=== PATIENT | male | born 1975 | race Caucasian/White ===

== ENCOUNTER → 2017-06-10 08:13 | Outpatient (CLI) | payer BC, SELFPAY ==
--- NOTE | 2017-06-10 08:15 | RAD_ITS ---
STUDY: X-RAY - LEFT WRIST REASON FOR EXAM: Male, 42 years old. Pain TECHNIQUE: 3 view(s) of the wrist were obtained. COMPARISON: None. FINDINGS: Normal visualized distal radius and ulna. Normal radiocarpal articulation. Normal distal radioulnar articulation. Normal carpal bones. Normal carpal articulations. Normal carpometacarpal articulation of the thumb. Normal second through fifth carpometacarpal articulations. Normal visualized metacarpal bones. The soft tissue structures are unremarkable. RAD/Wrist min 3 Views IMPRESSION: Normal x-ray examination of the wrist. Electronically Signed: Maverick Gonzalez DO at 23:58 EDT , Service support ,
== END ==
PROVIDERS: Family Provider Student in an Organized Health Care Education/Training Program; PCP Student in an Organized Health Care Education/Training Program; Visit Provider Physician Assistant
DX: M25.532 Pain in left wrist (principal)
CPT/HCPCS: 73110

== ENCOUNTER → 2017-09-10 07:55 | Outpatient (CLI) | payer BC, SELFPAY ==
--- NOTE | 2017-09-10 07:58 | CT_ITS ---
STUDY: CT MAXILLOFACIAL SINUSES REASON FOR EXAM: Male, 42 years old. Polyposis. Chronic sinusitis. RADIATION DOSAGE (If Supplied By Facility): CTDIvol = ( 33.06 ) mGy, DLP = ( 777.87 ) mGycm TECHNIQUE: The patient was scanned in a multi detector CT scanner. High resolution axial imaging was performed without the administration of intravenous contrast material. Sagittal and coronal images were reconstructed. Individualized dose optimization techniques were used for this CT. COMPARISON: None. FINDINGS: FRONTAL SINUSES: Opacification of the frontal sinus. ETHMOIDAL SINUSES: Opacification of the ethmoid sinuses. MAXILLARY SINUSES: Opacification of the maxillary sinuses. Mucosal thickening of the sphenoid sinus. SPHENOIDAL SINUSES: Mucosal thickening of the sphenoid sinus. There is obliteration of the ostiomeatal coccyx bilaterally due to soft tissue proliferation. There is partial obliteration of the nasal fossa bilaterally most likely secondary to polyposis. This extends into the nasopharynx posteriorly. There is nasal septal deviation towards the right sided midline. The visualized osseous structures are normal. The visualized bilateral orbital contents are normal. CT/Sinus/Facial Bone IMPRESSION: Pansinusitis. Findings suggestive of a diffuse nasal polyposis. Electronically Signed: David Hopkins MD at 14:33 EDT Tel [phone], Service support ,
== END ==
PROVIDERS: Family Provider Student in an Organized Health Care Education/Training Program; PCP Student in an Organized Health Care Education/Training Program; Visit Provider Otolaryngology
DX: J33.1 Polypoid sinus degeneration (principal)
CPT/HCPCS: 70486

== ENCOUNTER 2017-09-15 17:47 | Observation (INO) | payer BC, SELFPAY ==
[2017-09-15 17:48] VITALS: BP 151/92; PULSE 61; RESP 16; TEMP 36.8; O2SAT 99; BMI 26.9
--- NOTE | 2017-09-15 17:53 | EKG12_ITS ---
Test Reason : CP Blood Pressure : / mmHG Vent. Rate : 046 BPM Atrial Rate : 046 BPM P-R Int : 192 ms QRS Dur : 094 ms QT Int : 414 ms P-R-T Axes : 029 -02 016 degrees QTc Int : 362 ms Sinus bradycardia Otherwise normal ECG Confirmed by MORTEZA RODRIGUEZ, AVINASH ([id number]), image editor SERG COOK ([id number]) on 09/17/2017 1:55:23 PM Referred By: Thang Hooper Confirmed By:AVINASH PRO MD
--- NOTE | 2017-09-15 17:59 | RAD_ITS ---
STUDY: X-RAY CHEST REASON FOR EXAM: Male, 42 years old. Chest pain TECHNIQUE: Single AP portable view of the chest. COMPARISON: None. FINDINGS: The lungs are clear and expanded. There is no demonstrated pleural abnormality. Normal size heart. Normal mediastinum and marty. Normal visualized pulmonary arteries. Normal visualized aortic arch and descending thoracic aorta. Normal visualized thoracic spine. Normal visualized ribs, clavicles, and shoulders. There is no demonstrated abnormality of the visualized soft tissue structures of the upper abdomen. RAD/Chest 1 View (Portable) IMPRESSION: Normal x-ray examination of the chest. Electronically Signed: Rosales Zuniga DO at 18:41 EDT Tel , Service support ,
[2017-09-15 18:13] LABS: Absolute Lymphocyte Count 1.97 X10^3/ul (0.83-4.51); Absolute Neutrophil Count 3.9 X10^3/uL (2.0-7.7); Basophil# 0.04 X10^3/uL; Basophil% 0.6 % (0-1); Eosinophil# 0.43 X10^3/uL; Eosinophils% 6.3 % (0-5); Hematocrit 44.2 % (40-54); Hemoglobin 15.2 g/dl (13.0-16.5); Lymphocyte # 1.97 X10^3/ul (4.0); Mean Corp Hgb Conc 34.4 g/gl (32-36); Mean Corpuscular Hgb 30.4 pg (27.0-32.0); Mean Corpuscular Volume 88.4 fL (80-94); Mean Platelet Vol. 11.6 fl (6.2-12.0); Monocyte# 0.47 X10^3/uL; Monocyte% 6.9 % (0-10); Neutrophil # 3.89 X10^3/uL (2.7-7.7); Neutrophil % 57.2 % (47-70); Platelet Count 160 K/mm3 (150-450); RBC Distribution Width CV 12.4 % (11.6-14.6); RBC Distribution Width SD 39.9 fl (35.1-43.9); White Blood Count 6.8 K/mm3 (4.4-11.0)
[2017-09-15 18:21] LABS: POSITIVE COUNT NO; POSITIVE DIFFERENTIAL NO; POSITIVE MORPHOLOGY NO
[2017-09-15 18:41] LABS: Anion Gap 7 (5-15); BUN 26 mg/dL (7-18); BUN/Creat Ratio 22.8 RATIO (10-20); Calcium,Total 8.9 mg/dL (8.5-10.1); Chloride 107 mmol/L (98-107); Creatinine, Serum 1.14 mg/dL (0.70-1.30); EST Glomerular Filtration Rate 76 mL/min (>60); Est Glom Filt Rate - Afr Amer 91 mL/min (>60); Estimated Creatinine Clearance 97.34 ml/min; Glucose 96 mg/dL (74-106); Potassium 4.3 mmol/L (3.5-5.1); Sodium Level 143 mmol/L (136-145)
--- NOTE | 2017-09-15 19:33 | CT_ITS ---
STUDY: CTA CHEST REASON FOR EXAM: Male, 42 years old. Palpitations and chest pain RADIATION DOSAGE (If Supplied By Facility): CTDIvol = ( 17.56 ) mGy, DLP = ( 703.92 ) mGycm TECHNIQUE: The examination was performed with the intravenous administration of 100 ml of Isovue 370 contrast material. Post-processing of the angiographic images was performed, with multiplanar reformation and 3D reconstruction. Individualized dose optimization techniques were used for this CT. COMPARISON: None. FINDINGS: Normal enhancement of the main pulmonary artery and right and left pulmonary arteries. Normal enhancement of the bilateral peripheral pulmonary arteries. There is no demonstrated pulmonary embolism. Normal thoracic aorta and visualized great vessels. There is no demonstrated aortic dissection. Normal heart and pericardium. Normal mediastinum. Normal hilar regions. Normal visualized trachea and bronchi. The lungs are well expanded. Normal pulmonary parenchyma. Normal pleura. Normal chest wall structures. Normal osseous structures. Normal visualized upper abdomen. CT/CTA Chest W/WO Contrast IMPRESSION: Normal CTA chest examination, without a demonstrated pulmonary embolism or arterial dissection. Electronically Signed: Rosales Zuniga DO at 20:19 EDT Tel , Service support ,
[2017-09-15 19:37] VITALS: BP 136/101; PULSE 58; RESP 16; O2SAT 98; O2SAT 99
--- NOTE | 2017-09-15 19:38 | ED.VISSUMM ---
- ER Visit Summary Date of Service: 09/15/17 Chief Complaint: Pain History of Present Illness: The patient is a 42 M with left-sided chest pain radiating to his left arm. This is associated with paresthesias into his arms. He has been having sweats and dizziness with this. His blood pressure has been as high as 222/111. He had some symptoms last week where he had chest pain at work and felt lightheaded. He has a history of high cholesterol, elevated blood pressures, and a family history of coronary disease. No history of PE or aortic disease. No fevers or infectious symptoms. No cough or shortness of breath. Physical Examination: Blood pressure 151/92. Heart rate 61. Afebrile. Patient appears uncomfortable but not toxic or in distress. Skin appears normal. Heart bradycardic but regular. Lungs clear. Abdomen soft and nontender. Calves soft and supple. Pulses strong and equal. Test Results: EKG shows bradycardia at a rate of 46. No sign of acute ischemia or infarction pattern. CBC, BMP, troponin normal. Emergency Department Course and Treatment: Patient had an EKG and lab work done in triage per nursing protocol. When I saw him, he continued to have chest pain. He was placed on a monitor. Will check a CTA for dissection given his pain, numbness and paresthesias, and elevated blood pressure. I have low suspicion for PE or infectious etiologies. Patient is bradycardic here. He has no history of bradycardia. His heart rate is normal in the 70s. CTA unremarkable. Patient continued to have a heart rate in the 50s. He is overall low risk, but his persistent symptoms, bradycardia, and strong family history are concerning. I spoke with the hospitalist who will admit for further care. Treatment Plan: As above Disposition: Admission Impression: 1. Chest pain 2. Bradycardia This note was generated with [employer] dictation software. It may contain incorrect words, spelling, and punctuation that were not noted in review of the chart prior to signing ED Disposition - Plan for ED Patient: Chief Complaint: Chest Pain Referrals: Aleksey Leung DO [Primary Care Provider] -
[2017-09-15 20:00] VITALS: BP 139/95; PULSE 57; RESP 14; O2SAT 99
[2017-09-15 20:06] VITALS: BMI 26.9
[2017-09-15 20:39] LABS: Thyroid Stim Hormone (TSH) 2.65 uIU/mL (0.358-3.74)
--- NOTE | 2017-09-15 21:34 | PCM.HP.STD ---
Problem List (1) Hyperlipidemia Status: Chronic (2) GERD (gastroesophageal reflux disease) Status: Chronic (3) Chest pain Status: Acute History of Present Illness Date of Admission: 09/15/17 Chief Complaint: Chest pain The patient is a 42 year old M with past medical history as mentioned above presented to the medicine because of chest pain. The pain is retrosternal, dull aching pain, not radiating, intermittent, 6 out of 10 in severity, associated with mild shortness of breath as well as numbness and tingling of both hands and legs and without aggravating or relieving factors. He has been having episodes of similar chest pain over the last week but has been resolving spontaneously. He denied dizziness, lightheadedness, syncope or presyncope. He reported headache. Denied focal arm or leg weakness. He mentioned that his blood pressure has been high up to 200 systolic. In the emergency department, his blood pressure was slightly elevated and then improved. He was bradycardic, heart rate has been in the 50s. He was afebrile. His routine blood work was unremarkable. Troponin was negative. TSH was normal. EKG revealed sinus bradycardia, heart rate of 46 bpm without evidence of heart block or cardiac arrhythmias, no acute ischemic changes. Chest x-ray showed no acute findings. CTA chest showed no PE or dissection. He is being admitted for chest pain and bradycardia for evaluation. Past Medical History Past Medical History (Chronic Problems): Chronic Problems (Last Updated 06/10/17 @ 08:06 by Madelaine Tobias) Hyperlipidemia (Chronic) GERD (gastroesophageal reflux disease) (Chronic) Medical History: Medical History (Last Updated 06/10/17 @ 08:06 by Madelaine Tobias) Back pain M54.9 Fatigue R53.83 GI bleed K92.2 Shoulder pain M25.519 Allergies metaxalone [From Skelaxin] Adverse Reaction (Verified 09/15/17 17:52) Hives Home Medications: Ambulatory Orders Medication Instructions Recorded Atorvastatin Calcium [Lipitor] 10 mg PO QHS 08/11/14 naproxen 250 mg tablet 250 mg PO BID 06/10/17 Cholecalciferol (Vitamin D3) 50,000 unit PO PARSONS 09/15/17 [Vitamin D3] Surgical History: no surgical history Lives: Spouse/ Significant Other Smoking Status: Former smoker Tobacco Use: Cigarettes Alcohol: None Drugs: None - *Family History Paternal Family History: Family History (Last Updated 06/10/17 @ 08:07 by Madelaine Tobias) Other Hypertension History Items: - - diabetes Maternal Family History: Family History (Last Updated 06/10/17 @ 08:07 by Madelaine Tobias) Other Hypertension History Items: No pertinent history Review of Systems Constitutional: Denies: Anorexia, Chills, Fever, Weakness Eyes: Denies: Blurred vision, Double vision, Drainage, Redness HEENT: Reports: Head Aches. Denies: Difficulty Hearing, Dysphasia, Ear Pain, Eye Pain, Nasal Congestion, Sore Throat Cardiovascular: Reports: Chest Pain. Denies: Edema, Heaviness, Light Headedness, Orthopnea, Paroxysmal Noc. Dyspnea, Syncope Respiratory: Reports: Shortness of Breath. Denies: Cough, Hemoptysis, Pleuritic Pain, Sputum production, Wheezing Gastrointestinal: Denies: Abdominal Pain, Constipation, Diarrhea, Nausea, Vomiting Genitourinary: Denies: Dysuria, Frequency, Hematuria Musculoskeletal: Denies: Arm Pain, Back Pain, Foot Pain Skin: Denies: Dryness, Rash Neurological: Denies: Balance problems, Double vision, Change in Speech, Slurred speech, Confusion, Focal weakness, Headaches, Incoordination Psychiatric: Denies: Anxiety, Depression Endocrine: Denies: Change in Body Habitus, Polydipsia VTE Information - Inpt Only VTE Present on Admission: No VTE Mechan Device Prophylaxis: None VTE Pharm Prophylaxis ordered?: No - Physical Exam General: Alert, Oriented x3, Cooperative, No apparent distress HEENT: Atraumatic, PERRLA, EOMI, Normocephalic Oral: Moist Mucosa, No Gingival or Mucosal Lesions/ Ulcerations Neck: Supple, No JVD, Negative Carotid Bruits, Trachea Midline, Thyroid Normal Size and Texture Lungs: Clear to auscultation, Normal air movement, No rhonchi, No wheeze, No rales Cardiovascular: Regular rate, Regular Rhythm, Normal S1, Normal S2, PMI Normal Abdomen: Bowel Sounds Present, Soft, Non Tender, Non-Distended, No Hepato-splenomegaly Extremities: No clubbing, No cyanosis, No edema Skin: No rashes, No breakdown Lymphatic: No Cervical, Supraclavicular, or Inguinal Adenopathy Neurological: Cranial nerves II-XII grossly intact, Motor Exam 5/5 strength throughout Psych/Mental Status: Normal Affect, Appropriate, Alert and oriented to time, place, person, mood and affect Vital Signs Temp Pulse Resp BP Pulse Ox 98.2 F 57 L 14 139/95 H 99 09/15/17 17:48 09/15/17 20:00 09/15/17 20:00 09/15/17 20:00 09/15/17 20:00 Oxygen Flow Rate (L/min) 2 Oxygen Delivery Method Nasal Cannula Weight: 203 lb 14.841 oz Body Mass Index (BMI) 26.9 Laboratory Tests Past 24 Hrs 09/15/17 09/15/17 09/15/17 18:00 18:00 18:00 WBC 6.8 RBC 5.00 Hgb 15.2 Hct 44.2 MCV 88.4 MCH 30.4 MCHC 34.4 RDW 12.4 RDW Differential 39.9 Plt Count 160 MPV 11.6 Immature Gran % (Auto) 0.000 Neut % (Auto) 57.2 Lymph % (Auto) 29.0 Tripp % (Auto) 6.9 Eos % (Auto) 6.3 H Baso % (Auto) 0.6 Absolute Neuts (auto) 3.9 Absolute Lymphs (auto) 1.97 Total Counted Not Reportable Sodium 143 Potassium 4.3 Chloride 107 Carbon Dioxide 29.0 Anion Gap 7 BUN 26 H Creatinine 1.14 Estim Creat Clear Calc 97.34 Est GFR (MDRD) Af Amer 91 Est GFR (MDRD) Non-Af 76 BUN/Creatinine Ratio 22.8 H Glucose 96 Calcium 8.9 Troponin I < 0.015 TSH 2.65 Clinical Impression(s) from Imaging Studies Chest X-Ray 09/15/17 17:59 IMPRESSION: Normal x-ray examination of the chest. Electronically Signed: Rosales Zuniga DO at 18:41 EDT Tel , Service support , Chest CTA 09/15/17 19:33 IMPRESSION: Normal CTA chest examination, without a demonstrated pulmonary embolism or arterial dissection. Electronically Signed: Rosales Zuniga DO at 20:19 EDT Tel , Service support , Assessment/Plan All Active Problems (Last Updated 06/10/17 @ 08:06 by Madelaine Tobias) Chest pain (Acute) This is a 42 years old male patient presented to the emergency room because of atypical chest pain, found to have bradycardia and he is being admitted for evaluation #1 atypical chest pain: Risk factors are only hyperlipidemia. No family history of premature CAD. His EKG revealed sinus bradycardia, no acute ischemic changes. Troponin was negative. CTA chest showed no PE or dissection. Chest x-ray showed no acute findings. He had stress test 2 years ago back in October, that was normal. Plan: Admit to PCU for observation, cardiac monitoring, serial cardiac enzymes, IV fluids, sublingual nitro as needed for pain, nuclear stress test tomorrow morning if cardiac enzymes are negative. #2 elevated blood pressure/bradycardia: According to patient, sometimes his blood pressure goes up to 200 systolic. Upon arrival to ER, blood pressure was 151/92. At this time, blood pressure improved is down to 136/95. EKG revealed sinus bradycardia, heart rate of 46. He mentioned that he do a lot of exercise and goes to the gym. Also, his girlfriend mentioned that he takes large amounts of some type of supplement that contains large concentration of caffeine. This could be easily for high blood pressure which might lead to bradycardia. Plan as above. #3 hyperlipidemia: Continue statins. #4 DVT prophylaxis: Low risk patient, no prophylaxis indicated. This note was generated with [employer] software. It may contain incorrect words, spelling, and punctuation that were not noted in checking the note before signing. Code Visit OBSV E&M: 21227 Initial observation care L3
--- NOTE | 2017-09-15 21:36 | NURSING ---
Called [facility] CONFERENCE ASSISTANT at this time to inform PCU ready for admission
--- NOTE | 2017-09-15 21:38 | HP.PCM_ITS ---
Problem List (1) Hyperlipidemia Status: Chronic (2) GERD (gastroesophageal reflux disease) Status: Chronic (3) Chest pain Status: Acute History of Present Illness Date of Admission: 09/15/17 Chief Complaint: Chest pain The patient is a 42 year old M with past medical history as mentioned above presented to the medicine because of chest pain. The pain is retrosternal, dull aching pain, not radiating, intermittent, 6 out of 10 in severity, associated with mild shortness of breath as well as numbness and tingling of both hands and legs and without aggravating or relieving factors. He has been having episodes of similar chest pain over the last week but has been resolving spontaneously. He denied dizziness, lightheadedness, syncope or presyncope. He reported headache. Denied focal arm or leg weakness. He mentioned that his blood pressure has been high up to 200 systolic. In the emergency department, his blood pressure was slightly elevated and then improved. He was bradycardic , heart rate has been in the 50s. He was afebrile. His routine blood work was unremarkable. Troponin was negative. TSH was normal. EKG revealed sinus bradycardia, heart rate of 46 bpm without evidence of heart block or cardiac arrhythmias, no acute ischemic changes. Chest x-ray showed no acute findings. CTA chest showed no PE or dissection. He is being admitted for chest pain and bradycardia for evaluation. Past Medical History Past Medical History (Chronic Problems): Chronic Problems (Last Updated 06/10/17 @ 08:06 by Madelaine Tobias) Hyperlipidemia (Chronic) GERD (gastroesophageal reflux disease) (Chronic) Medical History: Medical History (Last Updated 06/10/17 @ 08:06 by Madelaine Tobias) Back pain M54.9 Fatigue R53.83 GI bleed K92.2 Shoulder pain M25.519 Allergies metaxalone [From Skelaxin] Adverse Reaction (Verified 09/15/17 17:52) Hives Home Medications: Ambulatory Orders Medication Instructions Recorded Atorvastatin Calcium [Lipitor] 10 mg PO QHS 08/11/14 naproxen 250 mg tablet 250 mg PO BID 06/10/17 Cholecalciferol (Vitamin D3) 50,000 unit PO PARSONS 09/15/17 [Vitamin D3] Surgical History: no surgical history Lives: Spouse/ Significant Other Smoking Status: Former smoker Tobacco Use: Cigarettes Alcohol: None Drugs: None - *Family History Paternal Family History: Family History (Last Updated 06/10/17 @ 08:07 by Madelaine Tobias) Other Hypertension History Items: - - diabetes Maternal Family History: Family History (Last Updated 06/10/17 @ 08:07 by Madelaine Tobias) Other Hypertension History Items: No pertinent history Review of Systems Constitutional: Denies: Anorexia, Chills, Fever, Weakness Eyes: Denies: Blurred vision, Double vision, Drainage, Redness HEENT: Reports: Head Aches. Denies: Difficulty Hearing, Dysphasia, Ear Pain, Eye Pain, Nasal Congestion, Sore Throat Cardiovascular: Reports: Chest Pain. Denies: Edema, Heaviness, Light Headedness , Orthopnea, Paroxysmal Noc. Dyspnea, Syncope Respiratory: Reports: Shortness of Breath. Denies: Cough, Hemoptysis, Pleuritic Pain, Sputum production, Wheezing Gastrointestinal: Denies: Abdominal Pain, Constipation, Diarrhea, Nausea, Vomiting Genitourinary: Denies: Dysuria, Frequency, Hematuria Musculoskeletal: Denies: Arm Pain, Back Pain, Foot Pain Skin: Denies: Dryness, Rash Neurological: Denies: Balance problems, Double vision, Change in Speech, Slurred speech, Confusion, Focal weakness, Headaches, Incoordination Psychiatric: Denies: Anxiety, Depression Endocrine: Denies: Change in Body Habitus, Polydipsia VTE Information - Inpt Only VTE Present on Admission: No VTE Mechan Device Prophylaxis: None VTE Pharm Prophylaxis ordered?: No - Physical Exam General: Alert, Oriented x3, Cooperative, No apparent distress HEENT: Atraumatic, PERRLA, EOMI, Normocephalic Oral: Moist Mucosa, No Gingival or Mucosal Lesions/ Ulcerations Neck: Supple, No JVD, Negative Carotid Bruits, Trachea Midline, Thyroid Normal Size and Texture Lungs: Clear to auscultation, Normal air movement, No rhonchi, No wheeze, No rales Cardiovascular: Regular rate, Regular Rhythm, Normal S1, Normal S2, PMI Normal Abdomen: Bowel Sounds Present, Soft, Non Tender, Non-Distended, No Hepato- splenomegaly Extremities: No clubbing, No cyanosis, No edema Skin: No rashes, No breakdown Lymphatic: No Cervical, Supraclavicular, or Inguinal Adenopathy Neurological: Cranial nerves II-XII grossly intact, Motor Exam 5/5 strength throughout Psych/Mental Status: Normal Affect, Appropriate, Alert and oriented to time, place, person, mood and affect Vital Signs Temp Pulse Resp BP Pulse Ox 98.2 F 57 L 14 139/95 H 99 09/15/17 17:48 09/15/17 20:00 09/15/17 20:00 09/15/17 20:00 09/15/17 20:00 Oxygen Flow Rate (L/min) 2 Oxygen Delivery Method Nasal Cannula Weight: 203 lb 14.841 oz Body Mass Index (BMI) 26.9 Laboratory Tests Past 24 Hrs 09/15/17 09/15/17 09/15/17 18:00 18:00 18:00 WBC 6.8 RBC 5.00 Hgb 15.2 Hct 44.2 MCV 88.4 MCH 30.4 MCHC 34.4 RDW 12.4 RDW Differential 39.9 Plt Count 160 MPV 11.6 Immature Gran % (Auto) 0.000 Neut % (Auto) 57.2 Lymph % (Auto) 29.0 Bartholomew % (Auto) 6.9 Eos % (Auto) 6.3 H Baso % (Auto) 0.6 Absolute Neuts (auto) 3.9 Absolute Lymphs (auto) 1.97 Total Counted Not Reportable Sodium 143 Potassium 4.3 Chloride 107 Carbon Dioxide 29.0 Anion Gap 7 BUN 26 H Creatinine 1.14 Estim Creat Clear Calc 97.34 Est GFR (MDRD) Af Amer 91 Est GFR (MDRD) Non-Af 76 BUN/Creatinine Ratio 22.8 H Glucose 96 Calcium 8.9 Troponin I < 0.015 TSH 2.65 Clinical Impression(s) from Imaging Studies Chest X-Ray 09/15/17 17:59 IMPRESSION: Normal x-ray examination of the chest. Electronically Signed: Rosales Zuniga DO at 18:41 EDT Tel , Service support , Chest CTA 09/15/17 19:33 IMPRESSION: Normal CTA chest examination, without a demonstrated pulmonary embolism or arterial dissection. Electronically Signed: Rosales Zuniga DO at 20:19 EDT Tel , Service support , Assessment/Plan All Active Problems (Last Updated 06/10/17 @ 08:06 by Madelaine Tobias) Chest pain (Acute) This is a 42 years old male patient presented to the emergency room because of atypical chest pain, found to have bradycardia and he is being admitted for evaluation #1 atypical chest pain: Risk factors are only hyperlipidemia. No family history of premature CAD. His EKG revealed sinus bradycardia, no acute ischemic changes. Troponin was negative. CTA chest showed no PE or dissection. Chest x-ray showed no acute findings. He had stress test 2 years ago back in October, that was normal. Plan: Admit to PCU for observation, cardiac monitoring, serial cardiac enzymes, IV fluids, sublingual nitro as needed for pain, nuclear stress test tomorrow morning if cardiac enzymes are negative. #2 elevated blood pressure/bradycardia: According to patient, sometimes his blood pressure goes up to 200 systolic. Upon arrival to ER, blood pressure was 151/92. At this time, blood pressure improved is down to 136/95. EKG revealed sinus bradycardia, heart rate of 46. He mentioned that he do a lot of exercise and goes to the gym. Also, his girlfriend mentioned that he takes large amounts of some type of supplement that contains large concentration of caffeine. This could be easily for high blood pressure which might lead to bradycardia. Plan as above. #3 hyperlipidemia: Continue statins. #4 DVT prophylaxis: Low risk patient, no prophylaxis indicated. This note was generated with [employer] software. It may contain incorrect words, spelling, and punctuation that were not noted in checking the note before signing. Code Visit OBSV E&M: 00970 Initial observation care L3
--- NOTE | 2017-09-15 21:48 | NURSING ---
Called [facility] - asked for them to draw next troponin
[2017-09-15 22:38] VITALS: BMI 26.8
[2017-09-15 22:39] VITALS: BP 124/82; PULSE 56; RESP 20; TEMP 36.3; O2SAT 98
[2017-09-15] MEDS: 0.9% Normal Saline 1,000 ML 75 ML IV (22:51)
[2017-09-15] MEDS: 0.9% NaCl Peripheral Flush Adult/Peds IV (22:51)
[2017-09-15 22:58] VITALS: BP 128/84
[2017-09-15 23:00] VITALS: PULSE 57
[2017-09-15] MEDS: Atorvastatin Calcium 10 MG Tablet PO (23:52)
[2017-09-16 03:00] VITALS: PULSE 53
[2017-09-16 04:45] VITALS: BP 116/71; PULSE 53; RESP 16; TEMP 36.6; O2SAT 97
[2017-09-16 04:57] LABS: Absolute Lymphocyte Count 1.61 X10^3/ul (0.83-4.51); Absolute Neutrophil Count 3.6 X10^3/uL (2.0-7.7); Basophil# 0.04 X10^3/uL; Basophil% 0.7 % (0-1); Eosinophil# 0.42 X10^3/uL; Eosinophils% 6.9 % (0-5); Hematocrit 41.5 % (40-54); Hemoglobin 14.7 g/dl (13.0-16.5); Lymphocyte # 1.61 X10^3/ul (4.0); Lymphocyte % 26.4 % (19-41); Mean Corp Hgb Conc 35.4 g/gl (32-36); Mean Corpuscular Hgb 30.8 pg (27.0-32.0); Mean Platelet Vol. 11.7 fl (6.2-12.0); Monocyte# 0.48 X10^3/uL; Monocyte% 7.9 % (0-10); Neutrophil # 3.55 X10^3/uL (2.7-7.7); Neutrophil % 57.9 % (47-70); Platelet Count 154 K/mm3 (150-450); RBC Distribution Width CV 12.3 % (11.6-14.6); RBC Distribution Width SD 38.9 fl (35.1-43.9); Red Blood Count 4.77 M/mm3 (4.6-6.2); White Blood Count 6.1 K/mm3 (4.4-11.0)
[2017-09-16 05:00] LABS: POSITIVE COUNT NO; POSITIVE DIFFERENTIAL NO; POSITIVE MORPHOLOGY NO
[2017-09-16 05:08] LABS: International Normalized Ratio 1.1; Prothrombin Time (Protime)PT. 13.8 SECONDS (11.7-14.9)
[2017-09-16 05:09] LABS: Anion Gap 7 (5-15); BUN 22 mg/dL (7-18); BUN/Creat Ratio 22.7 RATIO (10-20); Calcium,Total 8.4 mg/dL (8.5-10.1); Chloride 110 mmol/L (98-107); Creatinine, Serum 0.97 mg/dL (0.70-1.30); EST Glomerular Filtration Rate 91 mL/min (>60); Est Glom Filt Rate - Afr Amer 110 mL/min (>60); Glucose 100 mg/dL (74-106); Partial Thromboplast Time 30.9 Seconds (24.1-36.2); Potassium 3.9 mmol/L (3.5-5.1); Sodium Level 144 mmol/L (136-145)
--- NOTE | 2017-09-16 05:55 | EKG12_ITS ---
Test Reason : AM EKG Blood Pressure : / mmHG Vent. Rate : 050 BPM Atrial Rate : 050 BPM P-R Int : 216 ms QRS Dur : 092 ms QT Int : 424 ms P-R-T Axes : 045 001 016 degrees QTc Int : 386 ms Sinus bradycardia with sinus arrhythmia with 1st degree A-V block Otherwise normal ECG When compared with ECG of 15-SEP-2017 22:49, MANUAL COMPARISON REQUIRED, DATA IS UNCONFIRMED Confirmed by MORTEZA RODRIGUEZ, AVINASH ([id number]), senior editor SERG COOK ([id number]) on 09/21/2017 2:12:45 PM Referred By: Thang Hooper Confirmed By:AVINASH PRO MD
[2017-09-16 09:02] VITALS: PULSE 70
--- NOTE | 2017-09-16 10:41 | DCINST_ITS ---
- Discharge Diagnoses Current Active Problems: Current Active and Chronic Problems (Last Updated 06/10/17 @ 08:06 by Madelaine Tobias) Hyperlipidemia (Chronic) You will use the following diet at home:: No restrictions Discharge Activity: Return to Normal Activity Call your doctor if you observe: Shortness of breath, Dizziness, Fainting spells , Chest pain Allergies/Adverse Reactions: Allergies metaxalone [From Skelaxin] Adverse Reaction (Verified 09/15/17 17:52) Hives Medications to take at Discharge Atorvastatin Calcium [Lipitor] 10 mg PO QHS 08/11/14 naproxen 250 mg tablet 250 mg PO BID 06/10/17 Cholecalciferol (Vitamin D3) [Vitamin D3] 50,000 unit PO PARSONS 09/15/17 Primary Care Physician: Aleksey Leung DO [Primary Care Provider] - Please follow up with your Primary Care Physician in: 1 Week Test Results: Test results from this visit will be discussed in further detail at your follow- up appointment, if applicable. Proposed Discharge Date: 09/16/17
--- NOTE | 2017-09-16 10:42 | PCM.DC.SUM ---
Discharge Date and Diagnosis Date of Admission: 09/15/17 Date of Discharge: 09/16/17 - Primary Discharge Diagnosis 1. Musculoskeletal chest pain 2. Hyperlipidemia - Secondary Discharge Diagnosis Chronic Problems (Last Updated 06/10/17 @ 08:06 by Madelaine Tobias) Hyperlipidemia (Chronic) GERD (gastroesophageal reflux disease) (Chronic) Hospital Course and Treatment Imaging Results: Diagnostic Data Chest X-Ray 09/15/17 17:59 IMPRESSION: Normal x-ray examination of the chest. Electronically Signed: Rosales Zuniga DO at 18:41 EDT Tel , Service support , Chest CTA 09/15/17 19:33 IMPRESSION: Normal CTA chest examination, without a demonstrated pulmonary embolism or arterial dissection. Electronically Signed: Rosales Zuniga DO at 20:19 EDT Tel , Service support , Operations: None Procedures: Stress test Summary of Care Provided: The patient is a 42 year old M admitted 09/15/2017 due to chest pain. He has a past medical history of hyperlipidemia. Patient had a previous admission in October 2015 for left-sided chest pain, left shoulder pain. His nuclear stress test at that time was negative as well. He was discharged with Flexeril at that time for musculoskeletal pain. Patient complains of continuous minimal left-sided chest pain during admission. He does repetitive work at a factory. Feel pain is again musculoskeletal in nature. Troponin negative during admission. EKG without ischemia. Patient underwent earlier stress test which was negative for ischemia. Vitals stable. Patient is stable for discharge home with follow-up with primary care physician in 1 week. General: Alert, Oriented x3, Cooperative, No apparent distress HEENT: Atraumatic, PERRLA, EOMI, Normocephalic Oral: Moist Mucosa, No Gingival or Mucosal Lesions/ Ulcerations Neck: Supple, No JVD, Negative Carotid Bruits, Trachea Midline, Thyroid Normal Size and Texture Lungs: Clear to auscultation, Normal air movement Cardiovascular: Regular rate, Regular Rhythm, Normal S1, Normal S2, PMI Normal Abdomen: Bowel Sounds Present, Soft, Non Tender, Non-Distended, No Hepato-splenomegaly Extremities: No clubbing, No cyanosis, No edema Skin: No rashes, No breakdown Lymphatic: No Cervical, Supraclavicular, or Inguinal Adenopathy Neurological: Cranial nerves II-XII grossly intact, Motor Exam 5/5 strength throughout Psych/Mental Status: Normal Affect, Appropriate Patient seen exam prior to discharge. Physical assessment as noted above. Patient stable for discharge home with the follow-up her conditions as noted above. This patient was seen by MARYSOL Young under the supervision of Dr. Sethi. Discharge Diet: No Restrictions Discharge Activity: Return to Normal Activity Call your doctor if you observe: Shortness of breath, Dizziness, Fainting spells, Chest pain Home Medications: Medications to take at Discharge Atorvastatin Calcium [Lipitor] 10 mg PO QHS 08/11/14 naproxen 250 mg tablet 250 mg PO BID 06/10/17 Cholecalciferol (Vitamin D3) [Vitamin D3] 50,000 unit PO PARSONS 09/15/17 Primary Care Physician: Aleksey Leung DO [Primary Care Provider] - Please follow up with your Primary Care Physician in: 1 Week Disposition: Home Minutes spent on discharge:: 35 Patient Condition:: Stable Medical Necessity - Tobacco Use Smoking Status: Former smoker Tobacco Use: Cigarettes Meaningful Use Info Meaningful Use Diagnoses (Choose all that apply): None applicable
[2017-09-16 10:45] VITALS: BP 120/81; PULSE 66; RESP 16; TEMP 36.9; O2SAT 98
--- NOTE | 2017-09-16 10:49 | DS.PCM_ITS ---
Discharge Date and Diagnosis Date of Admission: 09/15/17 Date of Discharge: 09/16/17 - Primary Discharge Diagnosis 1. Musculoskeletal chest pain 2. Hyperlipidemia - Secondary Discharge Diagnosis Chronic Problems (Last Updated 06/10/17 @ 08:06 by Madelaine Tobias) Hyperlipidemia (Chronic) GERD (gastroesophageal reflux disease) (Chronic) Hospital Course and Treatment Imaging Results: Diagnostic Data Chest X-Ray 09/15/17 17:59 IMPRESSION: Normal x-ray examination of the chest. Electronically Signed: Rosales Zuniga DO at 18:41 EDT Tel , Service support , Chest CTA 09/15/17 19:33 IMPRESSION: Normal CTA chest examination, without a demonstrated pulmonary embolism or arterial dissection. Electronically Signed: Rosales Zuniga DO at 20:19 EDT Tel , Service support , Operations: None Procedures: Stress test Summary of Care Provided: The patient is a 42 year old M admitted 09/15/2017 due to chest pain. He has a past medical history of hyperlipidemia. Patient had a previous admission in October 2015 for left-sided chest pain, left shoulder pain. His nuclear stress test at that time was negative as well. He was discharged with Flexeril at that time for musculoskeletal pain. Patient complains of continuous minimal left-sided chest pain during admission. He does repetitive work at a factory. Feel pain is again musculoskeletal in nature. Troponin negative during admission. EKG without ischemia. Patient underwent earlier stress test which was negative for ischemia. Vitals stable. Patient is stable for discharge home with follow-up with primary care physician in 1 week. General: Alert, Oriented x3, Cooperative, No apparent distress HEENT: Atraumatic, PERRLA, EOMI, Normocephalic Oral: Moist Mucosa, No Gingival or Mucosal Lesions/ Ulcerations Neck: Supple, No JVD, Negative Carotid Bruits, Trachea Midline, Thyroid Normal Size and Texture Lungs: Clear to auscultation, Normal air movement Cardiovascular: Regular rate, Regular Rhythm, Normal S1, Normal S2, PMI Normal Abdomen: Bowel Sounds Present, Soft, Non Tender, Non-Distended, No Hepato- splenomegaly Extremities: No clubbing, No cyanosis, No edema Skin: No rashes, No breakdown Lymphatic: No Cervical, Supraclavicular, or Inguinal Adenopathy Neurological: Cranial nerves II-XII grossly intact, Motor Exam 5/5 strength throughout Psych/Mental Status: Normal Affect, Appropriate Patient seen exam prior to discharge. Physical assessment as noted above. Patient stable for discharge home with the follow-up her conditions as noted above. This patient was seen by MARYSOL Young under the supervision of Dr. Sethi. Discharge Diet: No Restrictions Discharge Activity: Return to Normal Activity Call your doctor if you observe: Shortness of breath, Dizziness, Fainting spells , Chest pain Home Medications: Medications to take at Discharge Atorvastatin Calcium [Lipitor] 10 mg PO QHS 08/11/14 naproxen 250 mg tablet 250 mg PO BID 06/10/17 Cholecalciferol (Vitamin D3) [Vitamin D3] 50,000 unit PO PARSONS 09/15/17 Primary Care Physician: Aleksey Leung DO [Primary Care Provider] - Please follow up with your Primary Care Physician in: 1 Week Disposition: Home Minutes spent on discharge:: 35 Patient Condition:: Stable Medical Necessity - Tobacco Use Smoking Status: Former smoker Tobacco Use: Cigarettes Meaningful Use Info Meaningful Use Diagnoses (Choose all that apply): None applicable
[2017-09-16 11:22] VITALS: PULSE 46
--- NOTE | 2017-09-16 11:56 | STRESSREP ---
Stress Test Report Exercise myocardial perfusion stress test. 42-year-old man with a history of chest pain. Medications Lipitor Protonix. Stress protocol: Resting EKG demonstrates sinus bradycardia with a rate of 45 bpm normal intervals and noted resting blood pressure is 118/84 mmHg. The patient exercised according to regular Yaron protocol for a total duration of 11 minutes. The patient completed 2 minutes into stage IV of the Yaron protocol the maximum heart rate attained was 157 bpm which was 87% of maximum predicted heart rate the maximum workload attained was 13.4 metabolic equivalents. At rest there were no ST or T-wave changes noted suggest ischemia peak exercise no ST or T-wave changes were noted suggest ischemia no clinical angina was noted and no ischemia was present. Myocardial perfusion protocol. 14.6 mCi of technetium 99m sestamibi was injected at rest. The patient exercised according to regular Yaron protocol for total duration of 11 minutes attaining 13.4 metabolic equivalents. At peak exercise 44.3 mCi of technetium 99m sestamibi was injected stress images were obtained stress and rest images were reconstructed and compared in the short axis vertical long and horizontal long axis. Gated images were also obtained pre- Perfusion SPECT analysis: Review of the stress images demonstrate normal uptake of tracer noted in all areas of the myocardium. The resting images similarly demonstrate normal uptake of tracer noted in all areas of the myocardium. No areas of reversibility are noted suggest ischemia. No infarct is noted. Gated SPECT analysis: The gated ejection fraction is noted to be 57%. Conclusion: Normal exercise myocardial perfusion stress test with no evidence of ischemia. Preserved ejection fraction.
== END 2017-09-16 10:41 | disposition home or self-care (01) ==
LOC: ED 21:36 → PCU 21:37
PROVIDERS: Admitting Provider Hospitalist; Emergency Provider Emergency Medicine; Family Provider Student in an Organized Health Care Education/Training Program; PCP Student in an Organized Health Care Education/Training Program; Visit Provider Internal Medicine
DX: R07.89 Other chest pain (principal); R20.2 Paresthesia of skin; R42 Dizziness and giddiness; R00.1 Bradycardia, unspecified; R20.0 Anesthesia of skin; I10 Essential (primary) hypertension; K21.9 Gastro-esophageal reflux disease without esophagitis; E78.5 Hyperlipidemia, unspecified; Z79.899 Other long term (current) drug therapy; Z87.891 Personal history of nicotine dependence; Z82.49 Family history of ischemic heart disease and other diseases of the circulatory system
CPT/HCPCS: 36415; 71045; 71275; 78452; 80048; 84443; 84484; 85025; 85610; 85730; 93005; 93017; 96360; 96361; 99218; 99283; A9500; J7030; Q9967; A4216; G0378

== ENCOUNTER 2017-10-09 07:51 | Day surgery (SDC) | payer BC, SELFPAY ==
[2017-10-09 08:13] VITALS: BP 115/86; PULSE 66; RESP 16; TEMP 36.7; O2SAT 98; BMI 27.1
--- NOTE | 2017-10-09 09:15 | ETH_PTH ---
PATIENT: VERNA HAMILTON LOC: [facility] [place] U#:[id number] AGE/SX: 42/M ROOM: RE10/09/[address]: Dr. Thang Hooper MD : 1975 BED: DIS: 10/09/2017 SPEC #: [id number] RECD: 10/09/17 12:47 STATUS: SHA CEE #: [id number] ZOILA: 10/09/17 09:[address]: Thang Hooper DEPT: SURGICAL PATHOLOGY RECD BY: Maurice Carmona ENTERED: 10/09/17 13:07 SP TYPE: ETH TISS OTHR DR: Dr. Aleksey Leung DO Tissues: A - Ethmoid sinus, NOS B - Ethmoid sinus, NOS C - Nasal septum, NOS D - Nasal septum, NOS Procedures: Decalcification bone/plaque Surgery Specimen Level III Surgery Specimen Level IV HEADER OPERATION: Functional endoscopic sinus surgery PRE-OP DIAGNOSIS: Polypoid sinus degeneration, chronic maxillary sinusitis, chronic ethmoidal sinusitis, chronic fontal sinusitis TISSUE SUBMITTED: A ? Contents right sinus, B ? Contents left sinus, C ? Left septum and cartilage, D ? Right septum and cartilage MICROSCOPIC DIAGNOSIS A. Contents right sinus: Fragments of respiratory mucosa with chronic inflammation and bone. Fragments of benign inflammatory mucosal polyps. B. Contents left sinus: Fragments of respiratory mucosa with chronic inflammation and bone. Fragments of benign inflammatory mucosal polyps. C. Left septum and cartilage: Fragments of respiratory mucosa with chronic inflammation and bone. D. Right septum and cartilage: Fragments of cartilage and bone. SJ:marie 10/14/17 MICROSCOPIC DESCRIPTION Slides are reviewed. GROSS DESCRIPTION A - Received in fixative is one container labeled with the patient's name and designated contents right sinus. The specimen consists of multiple fragments of pink frothy soft tissue that in aggregate measure 6 x 4 x 2 cm. Also present in the container are multiple fragments of bone measuring in aggregate 1 x 1 x 0.3 cm. Also present in the container is a fragment of trejo polypoid tissue measuring 1 x 1 x 0.5 cm. Order Runner tissue is submitted in two cassettes. Cassette 1 contains the entire polypoid tissue, cassette 2 also contains the fragments of bone. Cassette 2 is submitted after decalcification. B - Received in fixative is one container labeled with the patient's name and designated contents left sinus. The specimen consists of multiple fragments of pink frothy soft tissue that in aggregate measure 5 x 4 x 2 cm. Also present in the container are two polypoid pieces of trejo soft tissue measuring 0.5 and 1.5 cm in greatest dimension. Also present in the container are multiple pieces of bone measuring in aggregate 0.8 x 0.5 x 0.3 cm. Order Runner tissue is submitted in two cassettes as follows: 1 ? entire polypoid pieces, 2 ? soft tissue and bone after decalcification. C - Received in fixative is one container labeled with the patient's name and designated left septum and cartilage. The specimen consists of a piece of soft tissue with bone measuring 3 x 1.5 x 0.3 cm. The entire specimen is submitted in one cassette after decalcification. D - Received in fixative is one container labeled with the patient's name and designated right septum and cartilage. The specimen consists of multiple fragments of cartilage and bone measuring in aggregate 4 x 3 x 0.5 cm. Order Runner tissue is submitted in one cassette after decalcification. / SJ:rg 10/09/17 TC:3 CPT: 99847 x2, 01953 x2, 42734 x4
[2017-10-09] MEDS: Oxymetazoline 0.05% 1 SPRAY SPRAY.BTL 15 SPRAY (09:55)
[2017-10-09] MEDS: Lidocaine 4% 50 ML Bottle (09:55)
--- NOTE | 2017-10-09 11:53 | OP.PCM_ITS ---
Problem List (1) Deviated nasal septum Status: Chronic (2) Polypoid sinus degeneration Status: Chronic (3) Chronic maxillary sinusitis Status: Chronic (4) Chronic ethmoidal sinusitis Status: Chronic (5) Chronic sphenoidal sinusitis Status: Chronic Report of Operation Date of Procedure: 10/09/17 Pre-Operative Diagnosis: Deviated nasal septum, nasal polyposis, chronic sinusitis Post-Operative Diagnosis: same Surgery/Procedure Performed:: Septoplasty, Bilateral endoscopic maxillary antrostomies, total ethmoidectomies, sphenoidotomies, frontal sinus exploration Description of Surgical Findings:: Rios is a 42-year-old male since evaluation of chronic nasal obstruction with findings of extensive nasal polyposis. CT scan showed extensive polyposis and chronic inflammatory sinus disease as well as a large posterior nasal septal spur impinging the ostiomeatal complex on the right side and the above procedure was offered in hopes of relief of these complaints and he is eager to proceed. The risks, alternatives, potential benefits, and complications were discussed at length and any questions answered to the patient and/or caregiver' s satisfaction. Witnessed informed consent was obtained in the office, and the patient and/or caregiver was agreeable to proceed. Procedure went as follows: The patient was identified in the preoperative holding and brought to the operating room, was placed under general anesthesia and intubated. When appropriate anesthesia was obtained, the navigational head gear was placed and confirmed to be operational in accordance with the hide measuring machine operator's directions. Pledgets soaked in a 50-50 mixture of oxymetazoline and 4% topical lidocaine were placed to decongest the nasal mucosa. These were then removed and beginning on the left side using a 0? endoscope the nasal cavity examined. Extensive polyposis was noted. The insertion of the middle turbinate and uncinate process was then injected with 1% lidocaine with 100,000 epinephrine for a 2 cc total, and a similar injection was then carried on the contralateral side. Upon returning to the left side the middle turbinate was medialized with a Luz elevator. This allowed examination of the maxillary sinus ostia which is then probed with a double ball seeker. The uncinate process process was then outfractured with a J curette and transected with a backbiting forceps. This was then removed with the microdebrider creating a wide maxillary antrostomy. The ethmoid bulla was then entered and total ethmoidectomy was then carried out working posteriorly to anterior. The inferior 2/3 of the middle turbinate was removed as this was degenerate with polyps. Any polyps, scar, and mucous secretions were removed. The sphenoid sinus ostium was then identified and opened widely with any polyps, secretions, or other debris removed. The frontal sinus ostia was then explored and obstruction bone, polyps, or debris removed. Pledgets soaked in oxymetazoline were then placed for hemostasis and attention turned to the contralateral side. Similar procedure and findings were then carried out. Again, extensive polyposis and chronic sinusitis were noted. There was noted to be significant nasal septal deviation to the right. Using a 15 blade scalpel, a hemitransfixion incision was then made in the left side and using the Racine elevator a subperichondrial/periosteal flap was elevated. The septum was then transected at the bony cartilaginous junction and similar flap raised on the contralateral side. Using a Evelio forceps the septum was then sharply transected superiorly and the deviated portions removed with a Nicol forceps. Any inferior bony spur was then removed with a chisel allowing for midline placement of the nasal septum. The hemitransfixion incision was then closed with interrupted 4-0 chromic gut suture followed by a 4 -0 plain quilting suture to reapproximate the mucosal flaps. Floseal hemostatic agent was then applied after electrocautery of the posterior resection of the middle turbinates. Bray splints coated with Bacitracin ointment were then applied to each nasal cavity and secured at the columella with a single 3-0 Prolene suture. An NG tube was then placed to decompress the stomach and the patient returned to anesthesia, revived and extubated having tolerated the procedure well. Type of Anesthesia:: General Anesthesiologist: Thang Rogers Special Medications: none Specimen's removed: septum and sinus contents Drains: none Estimated Blood Loss (mL): 200 mL Fluids Replaced: 2000 mL Grafts/Implants Used: Bray splints - Complications none - Admit VTE Documentation VTE Present on Admission: No VTE Mechan Device Prophylaxis: SCD's VTE Pharm Prophylaxis ordered?: No
--- NOTE | 2017-10-09 12:01 | DCINST_ITS ---
- Discharge Diagnoses Current Active Problems: Current Active and Chronic Problems (Last Updated 06/10/17 @ 08:06 by Madelaine Tobias) Deviated nasal septum (Chronic) Polypoid sinus degeneration (Chronic) Chronic maxillary sinusitis (Chronic) Chronic ethmoidal sinusitis (Chronic) Chronic sphenoidal sinusitis (Chronic) You will use the following diet at home:: Regular Discharge Activity: Return to Normal Activity, May not drive while taking narcotic pain medications. Call your doctor if your incision/area has: Sudden Increased Bleeding Call your doctor if you observe: Fever of 101 or Higher, Uncontrolled pain Allergies/Adverse Reactions: Allergies metaxalone [From Skelaxin] Adverse Reaction (Verified 10/05/17 16:17) Hives Medications to take at Discharge RX: Atorvastatin Calcium [Lipitor] 10 mg PO QHS 08/11/14 naproxen 250 mg tablet 250 mg PO BID PRN 06/10/17 RX: Cholecalciferol (Vitamin D3) [Vitamin D3] 50,000 unit PO PARSONS 09/15/17 Primary Care Physician: Aleksey Leung DO [Primary Care Provider] - Test Results: Test results from this visit will be discussed in further detail at your follow- up appointment, if applicable. Please Follow Up With: Thang Hooper MD When: 5 days
[2017-10-09 12:16] VITALS: BP 115/86; BP 130/78; PULSE 80; RESP 16; TEMP 36.2; O2SAT 95
[2017-10-09 12:30] VITALS: BP 115/86; BP 121/86; PULSE 70; RESP 16; O2SAT 100
[2017-10-09 12:45] VITALS: BP 115/86; BP 129/92; PULSE 71; RESP 16; O2SAT 97
[2017-10-09 12:59] VITALS: BP 115/86; BP 126/94; PULSE 70; RESP 16; TEMP 36.6; O2SAT 100
[2017-10-09 14:00] VITALS: BP 115/86
== END 2017-10-09 14:10 | disposition home or self-care (01) ==
LOC: SDC 07:51 → AC 07:52
PROVIDERS: Family Provider Student in an Organized Health Care Education/Training Program; PCP Student in an Organized Health Care Education/Training Program; Visit Provider Otolaryngology
PROC: (CPT 30520; principal; 2017-10-09 08:45)
PROC: (CPT 30520; 2017-10-09 08:45)
DX: J34.2 Deviated nasal septum (principal); J33.1 Polypoid sinus degeneration; J32.0 Chronic maxillary sinusitis; J32.2 Chronic ethmoidal sinusitis; J32.1 Chronic frontal sinusitis; E78.5 Hyperlipidemia, unspecified; Z87.891 Personal history of nicotine dependence
CPT/HCPCS: 30520; 31253; 31256; 31257; 88304; 88305; 88311; J7120; J2405

== ENCOUNTER 2020-10-05 16:36 | Emergency (ER) | payer OTHER, SELFPAY ==
[2020-10-05 16:40] VITALS: BP 134/96; PULSE 75; PULSE 78; RESP 16; TEMP 37; O2SAT 97; BMI 26.8
--- NOTE | 2020-10-05 17:52 | EDS_ITS ---
HPI History of Present Illness Chief Complaint: Bite Informant: patient and EMS Onset/Context/Timing Onset: Today (JPTA) Context: Sudden Onset Quality: bite/sting Location: L 5th fingertip Current Severity: Mild Maximum Severity: Severe Worsened by: palpation Relieved by: removing stinger Associated Symptoms Associated Symptoms: near-syncope, tingling, blurry vision, headache Narrative Narrative: Patient was working outside he suddenly got stung by an insect that he did not see in the left small finger, he states it was fairly severe pain fairly quickly, he soon thereafter developed a headache, was near syncopal with some blurry vision. He did not lose consciousness. He was feeling better, pain and numbness was shooting up toward his wrist, he saw a very large stinger in his finger that he physically removed. He EMS was called. He did not have any shortness of breath, swelling, itching, rash, or injury/fall. EMS reported that his blood sugar was 109 and his blood pressure was 150s/120s initially, 150/100 subsequently. He was neurologically intact and without other signs of anaphylaxis, no other treatments were given except starting an IV and giving some saline. Patient feels fine now. [facility] Medical History Back pain Fatigue GI bleed Shoulder pain Home Medications atorvastatin 10 mg PO QHS 08/11/14 [History Last Taken 10/08/17] Allergy/AdvReac Type Severity Reaction Status Date / Time metaxalone [From Skelaxin] AdvReac Hives Verified 10/05/20 16:38 Family History (Updated 06/10/17 @ 08:07 by Madelaine Tobias) Other Hypertension Surgical History (Updated 10/05/20 @ 16:47 by Eduard Gibson) S/P operation on nasal sinus Social History Smoking Status: Former smoker alcohol intake: current alcohol intake frequency: a few times a month Alcohol type: beer and hard liquor ROS ROS ED Constitutional Constitutional ED: Reports as per HPI and malaise; Denies chills or fever(s) Eyes Eyes: Denies change in vision or diplopia ENT ENT ED: Denies rhinorrhea or sore throat Cardiovascular Cardiovascular: Denies chest pain or palpitations Respiratory/Chest Respiratory/Chest: Denies cough or dyspnea Gastrointestinal Gastrointestinal: Denies abdominal pain, diarrhea, nausea or vomiting Genitourinary Genitourinary ED: Denies dysuria or hematuria Musculoskeletal Musculoskeletal: Reports extremity pain; Denies back pain or neck pain Integumentary Reports as per HPI and wounds; Denies abscess or rash Neurologic Neurologic: Reports paresthesias; Denies headache(s) or weakness Psychiatric Psychiatric: Denies anxiety or suicidal thoughts EXAM Physical Exam Const Vital Signs: 10/05/20 16:40 10/05/20 16:49 Temperature 98.6 F Temperature Source Oral Pulse Rate 75 Respiratory Rate 16 Respiratory Effort Normal Respiratory Pattern Normal Blood Pressure 134/96 H Blood Pressure Mean 108 Pulse Ox 97 Oxygen Delivery Method Room Air Positive well nourished and well developed General Appearance ED: well developed and NAD HEENT Reports moist mucous membranes normocephalic and atraumatic Eyes PERRL and EOMs intact bilaterally Neck full ROM and supple Resp normal respiratory effort and clear to auscultation bilaterally Cardio regular rate, regular rhythm and no murmurs GI non-tender and non-distended Auscultation: normoactive bowel sounds Palpation: soft Back/Spine no CVA tenderness General Back: other FROM Extremity normal to inspection and full ROM Extremity Narrative: Minor tenderness without any rash or wheal/flare reaction at the pad of the left small finger where there is a very small splinter present in the epidermis without any bleeding. General Extremety ED: Negative for edema, pulses abnormal or tenderness General Extremity: Negative for edema or pulses abnormal Neuro oriented x3, CN's II-XII intact bilaterally and no sensory deficits noted Sensorium / Orientation: awake and alert Motor Exam: strength 5/5 throughout Skin no rashes or lesions noted and no wounds Skin Narrative: Splinter in the left small finger, no abnormal skin on exam otherwise. MDM MDM MDM Narrative Medical decision making narrative: Patient is not anaphylactic, his blood pressure is 130/90 on my evaluation, I suspect he had a vagal reaction and/or possibly anxiety to such a painful stinging, was probably a wasp or other bee, he did not have anaphylaxis given the history and EMS report, nor does he have any signs of it now. He is well-appearing with normal vital signs and normal neurologic exam. I remove the splinter with some forceps isopropanol, it was cleansed and dressed, and he is stable for discharge home. He has never been anaphylactic to bee stings in the past. Procedures Other Procedures Procedure(s): Foreign body removal finger --prepped the left small finger with isopropanol and using forceps removed small splinter/stinger foreign body without any difficulty, no complications tolerated well, no bleeding. Dressing cleanse with a bandage. Discharge Plan Triage Chief Complaint: Bite ED Provider: Jason Cerda Dx/Rx/DC Orders Clinical Impression: Sting, insect, Vasovagal near-syncope, Foreign body of finger of left hand Instructions: Insect Bites and Stings, ED Foreign Body, Soft Tissue (Removed), ED Near-Fainting- Vagal Reaction Prescriptions: No Action atorvastatin 10 MG tablet 10 mg PO QHS RF: 0 Primary Care Provider: Aleksey Leung Referrals: Aleksey Leung DO [Primary Care Provider] - As Needed Disposition Disposition: Home, Self Care
[2020-10-05 18:11] VITALS: BP 138/94; PULSE 69; RESP 17; O2SAT 98
== END 2020-10-05 18:12 | disposition home or self-care (01) ==
PROVIDERS: Emergency Provider Emergency Medicine; PCP Student in an Organized Health Care Education/Training Program
DX: S60.461A Insect bite (nonvenomous) of left index finger, initial encounter (principal); S60.451A Superficial foreign body of left index finger, initial encounter; R55 Syncope and collapse; X58.XXXA Exposure to other specified factors, initial encounter; Z87.891 Personal history of nicotine dependence
CPT/HCPCS: 99284; J7030; A4216

== ENCOUNTER 2022-08-08 17:17 | Emergency (ER) | payer OTHER, SELFPAY ==
[2022-08-08 17:18] VITALS: BP 119/88; PULSE 104; RESP 18; TEMP 37.4; O2SAT 99; BMI 27.1
[2022-08-08] MEDS: Ketorolac 15 MG/ML Vial IV (18:19)
[2022-08-08] MEDS: 0.9% Normal Saline 1,000 ML 1000 ML IV (18:19)
[2022-08-08] MEDS: Ondansetron 4 MG/2 ML Vial IV (18:19)
[2022-08-08] MEDS: Famotidine 200 MG/20 ML MDV 20 MG in 0.9% Normal Saline (Pres. free 8 ML 300 MG IV (18:21)
[2022-08-08 18:29] LABS: Bacteria 0 SEEN /hpf (None Seen); Mucous, Urine 0 SEEN /hpf (<or=2+); Red Blood Cells-Urine 0 SEEN /hpf (0-5); Squamous Epithelial Cells - UA 0 SEEN /hpf (0-5); White Blood Cells 0 SEEN /hpf (0-5)
--- NOTE | 2022-08-08 18:32 | CT_ITS ---
STUDY: CT ABDOMEN AND PELVIS WITH CONTRAST REASON FOR EXAM: Male, 47 years old. abdomen/pelvis RADIATION DOSAGE (If Supplied By Facility): CTDIvol = ( 14.56 ) mGy, DLP = ( 880.95 ) mGycm TECHNIQUE: Transaxial images were obtained from the dome of the diaphragm to the symphysis pubis without oral contrast. IV 100mL Isovue-370 was administered. Sagittal and coronal images were reconstructed. Individualized dose optimization techniques were used for this CT. COMPARISON: None. FINDINGS: The visualized lung bases are unremarkable. The visualized portions of the heart are within normal limits. Normal liver. Contracted thick-walled gallbladder without calcified stones or pericholecystic edema possibly physiologic. If concern for gallbladder disease ultrasound recommended. Normal spleen. Normal pancreas. Normal bilateral adrenal glands. Normal right kidney. Normal left kidney. Normal visualized stomach. Normal small intestine. Mild diffuse fecal retention within the colon.. The appendix is visualized and appears normal. Minor calcific plaquing of the distal abdominal aorta and bilateral common iliac arteries without evidence for aneurysm Normal inferior vena cava. Normal retroperitoneum. Incompletely distended thick walled bladder of uncertain clinical significance. Small fat-containing umbilical hernia without incarceration.. Normal osseous structures. CT/Abdomen/Pelvis W IV Cont ONLY IMPRESSION: Contracted thick-walled gallbladder without calcified stones or pericholecystic edema possibly physiologic however if concern for gallbladder disease ultrasound recommended. No evidence for small bowel obstruction or other acute abnormalities.. Electronically Signed: Eldon Greco MD at 18:56 EDT ,
--- NOTE | 2022-08-08 18:32 | EX.ED.DYSGE1 ---
HPI History of Present Illness Chief Complaint: Abd Pain [facility] Medical History Back pain Fatigue GI bleed Shoulder pain Home Medications atorvastatin 10 mg tablet 10 mg PO QHS CHOLESTEROL LOWERING 08/11/14 [History Last Taken 10/08/17] Allergy/AdvReac Type Severity Reaction Status Date / Time metaxalone [From Skelaxin] AdvReac Hives Verified 08/08/22 17:20 Family History (Updated 06/10/17 @ 08:07 by Madelaine Tobias) Other Hypertension Surgical History S/P operation on nasal sinus Social History Smoking Status: Former smoker alcohol intake: current alcohol intake frequency: a few times a month Alcohol type: beer and hard liquor EXAM Physical Exam Const Vital Signs: 08/08/22 17:18 08/08/22 21:18 08/08/22 21:22 Temperature 99.3 F H 98.9 F 98.9 F Temperature Source Temporal Oral Pulse Rate 104 H 89 89 Respiratory Rate 18 16 16 Blood Pressure 119/88 H 157/97 H 157/97 H Blood Pressure Mean 98 117 Pulse Ox 99 98 98 Oxygen Delivery Method Room Air [facility] MDM Narrative Medical decision making narrative: HISTORY OF PRESENT ILLNESS: 47-year-old male here with diffuse abdominal pain for last 2 to 3 days worse with food. Denies fever, vomiting, melena or hematochezia. No sick contacts. No history abdominal surgeries. Denies recent antibiotics or travel. REVIEW OF SYSTEMS: Pertinent positives: Abdominal pain Pertinent negatives: Syncope, melena, hematochezia, chest pain, shortness of breath PHYSICAL EXAM: Nursing triage notes reviewed, Vital signs reviewed Constitutional: please see mdm HENT: MMM Eyes: Pupils equal round and reactive to light, Extraocular muscles intact Neck: No stridor, no JVD, full neck ROM Lungs: Clear to auscultation, No wheezing or rales. No increased work of breathing, no conversational dyspnea, no accessory muscle use, no nasal flaring. No respiratory distress noted Heart: Regular rate and rhythm, No murmurs, No rubs and No gallops, 2+ distal pulses (radial, femoral, posterior tibial) in all extremities Abdomen: Soft, mild diffuse tenderness but no rigidity, rebound or guarding, no obvious peritoneal signs, no palpable pulsatile abdominal masses, no auscultated abdominal bruit : No CVAT Extremities: No edema Neuro: No focal neurological deficits, cranial nerves II through XII intact, 5/5 strength in all extremities. Intact sensation to light touch in all extremities, 2+ reflexes bilateral patella tendons. Normal gait. No ataxia. Skin: No rash or lesions noted MEDICAL DECISION MAKING: Chief Complaint: abominal pain External records reviewed: No recent advanced imaging of the abdomen pelvis Factors affecting care: GERD, hyperlipidemia Social determinants of health: Denies alcohol History obtained from others: The patient's Consults: None ALL IMAGES HAVE BEEN PERSONALLY REVIEWED AND INTERPRETED BY MYSELF. MDM Narrative: I considered the following differential diagnosis: Acute cholecystitis, gastritis, perforation, obstruction, appendicitis, diverticulitis, pancreatitis I obtained a broad lab and imaging work-up including a CT scan and right upper quadrant ultrasound. Labs images are unremarkable for acute surgical process of the abdomen. Likely etiology is gastritis versus esophagitis versus GERD. The etiology the patient's complaint is uncertain however unlikely be life-threatening given stable vitals, negative labs and images. He was instructed follow-up with a plant tour guide at the next available appointment. I see nothing that would suggest an acute abdomen at this time. Based on history physical exam, risk factors, labs and images I have a low for bowel obstruction, incarcerated hernia, acute pancreatitis, intra-abdominal abscess, perforated viscus, diverticulitis, cholecystitis, appendicitis, is very low. There is no evidence of peritonitis sepsis or toxicity at this time. I feel the patient can be managed as an outpatient with follow-up with her primary physician in the next 24 to 48 hours or soon as possible. Instructions have been given for the patient to return to the ED for worsening pain, anorexia, high fevers, intractable vomiting or bleeding. Total critical care time today provided was at least 0 minutes. This excludes separately billable procedures. There was a high probability of clinically significant/life threatening deterioration in the patient's condition which required my urgent intervention. Shared decision making: I will have a discussion with the patient and or visitors regarding risk/benefits of further testing or admission. They will be made aware of of the risk/benefits inherent in this decision they will be given the opportunity to voice understanding. Lab Data Attestation: I reviewed the patient's lab results. Lab results narrative: CBC without leukocytosis, severe anemia, no thrombocytopenia. BMP without evidence of significant electrolyte abnormalities, no anion gap, no acute kidney injury LFTs show no evidence of hepatobiliary pathology. UA without evidence of infection Lipase is wnl indicating no pancreatic inflammation. Labs: Laboratory Results - last 24 hr 08/08/22 08/08/22 08/08/22 17:40 17:40 18:15 WBC 4.5 RBC 4.95 Hgb 15.3 Hct 43.6 MCV 88.1 MCH 30.9 MCHC 35.1 RDW Std Deviation 40.4 RDW Coeff of Cathryn 12.6 Plt Count 143 L MPV 11.0 Immature Gran % (Auto) 0.400 Neut % (Auto) 73.3 H Lymph % (Auto) 16.3 L [place] % (Auto) 8.2 Eos % (Auto) 1.1 Baso % (Auto) 0.7 Absolute Neuts (auto) 3.3 Absolute Lymphs (auto) 0.74 L Nucleated RBC % 0 Sodium 140 Potassium 3.5 Chloride 109 H Carbon Dioxide 23.0 Anion Gap 8 BUN 15 Creatinine 1.07 Estim Creat Clear Calc 95.69 Est GFR (MDRD) Af Amer 96 Est GFR (MDRD) Non-Af 79 BUN/Creatinine Ratio 14.0 Glucose 112 H Calcium 8.8 Total Bilirubin 0.70 Direct Bilirubin 0.17 AST 49 H ALT 61 Alkaline Phosphatase 85 Total Protein 7.0 Albumin 3.7 Globulin 3.3 Lipase Urine Color Yellow Urine Clarity Clear Urine pH 6.5 Ur Specific [place] 1.010 Urine Protein 15 H Urine Glucose (UA) Normal Urine Ketones Negative Urine Occult Blood 10 H Urine Nitrite Negative Urine Bilirubin Negative Urine Urobilinogen 1 H Ur Leukocyte Esterase Negative Urine RBC 0 SEEN Urine WBC 0 SEEN Ur Squamous Epith Cells 0 SEEN Urine Bacteria 0 SEEN Urine Mucus 0 SEEN 08/08/22 20:06 WBC RBC Hgb Hct MCV MCH MCHC RDW Std Deviation RDW Coeff of Cathryn Plt Count MPV Immature Gran % (Auto) Neut % (Auto) Lymph % (Auto) [place] % (Auto) Eos % (Auto) Baso % (Auto) Absolute Neuts (auto) Absolute Lymphs (auto) Nucleated RBC % Sodium Potassium Chloride Carbon Dioxide Anion Gap BUN Creatinine Estim Creat Clear Calc Est GFR (MDRD) Af Amer Est GFR (MDRD) Non-Af BUN/Creatinine Ratio Glucose Calcium Total Bilirubin Direct Bilirubin AST ALT Alkaline Phosphatase Total Protein Albumin Globulin Lipase 36 Urine Color Urine Clarity Urine pH Ur Specific [place] Urine Protein Urine Glucose (UA) Urine Ketones Urine Occult Blood Urine Nitrite Urine Bilirubin Urine Urobilinogen Ur Leukocyte Esterase Urine RBC Urine WBC Ur Squamous Epith Cells Urine Bacteria Urine Mucus Radiography Diagnostic Testing: Clinical Impression(s) from Imaging Studies Abdomen/Pelvis CT 08/08/22 18:32 IMPRESSION: Contracted thick-walled gallbladder without calcified stones or pericholecystic edema possibly physiologic however if concern for gallbladder disease ultrasound recommended. No evidence for small bowel obstruction or other acute abnormalities.. Electronically Signed: Eldon Greco MD at 18:56 EDT , Gallbladder Ultrasound 08/08/22 19:27 IMPRESSION: Tiny fundal polyp but no evidence for shadowing stones or acute cholecystitis If concern for gallbladder disease HIDA scan with CCK stimulation would be helpful for further evaluation. Electronically Signed: Eldon Greco MD at 20:14 EDT , Discharge Plan Triage Chief Complaint: Abd Pain ED Provider: Basilio Salmon Dx/Rx/DC Orders Clinical Impression: Abdominal pain Instructions: Abdominal Pain Prescriptions: No Action atorvastatin 10 MG tablet 10 mg PO QHS Label Comments: CHOLESTEROL Primary Care Provider: Aleksey Leung Referrals: Aleksey Leung DO [Primary Care Provider] - Friend,DO Doc [Med Staff - Active Staff] - Activity Restrictions/Additional Instructions: Thank you for trusting us with your care today! Please take Tylenol (2 pills, 650 mg), ibuprofen (2 pills, 400 mg) every 6 hours as needed for pain and fever control. Please go to a local pharmacy or drugstore and obtain omeprazole please take this daily. Please return to the emergency department if your symptoms change or worsen. Specifically if develop worsening abdominal pain, he develop vomiting, fever, you lose consciousness. Please follow with your primary care physician and gastroenterology for further outpatient evaluation and management. Disposition Disposition: Home, Self Care Discharge Date/Time: 08/08/22 21:34
[2022-08-08 18:37] LABS: Absolute Lymphocyte Count 0.74 X10^3/uL (0.83-4.51); Absolute Neutrophil Count 3.3 X10^3/uL (2.0-7.7); Basophil# 0.03 X10^3/uL; Basophil% 0.7 % (0-1); Eosinophil# 0.05 X10^3/uL; Eosinophils% 1.1 % (0-5); Hematocrit 43.6 % (40-54); Hemoglobin 15.3 g/dL (13.0-16.5); Lymphocyte # 0.74 X10^3/ul (0.83-4.51); Lymphocyte % 16.3 % (19-41); Mean Corp Hgb Conc 35.1 g/dL (32-36); Mean Corpuscular Hgb 30.9 pg (27.0-32.0); Mean Corpuscular Volume 88.1 fL (80-94); Monocyte# 0.37 X10^3/uL; Monocyte% 8.2 % (0-10); NRBC Flagged by Analyzer 0 % (0-5); Neutrophil # 3.32 X10^3/uL (2.7-7.7); Neutrophil % 73.3 % (47-70); Platelet Count 143 K/mm3 (150-450); RBC Distribution Width CV 12.6 % (11.6-14.6); RBC Distribution Width SD 40.4 fl (35.1-43.9); Red Blood Count 4.95 M/mm3 (4.6-6.2); White Blood Count 4.5 K/mm3 (4.4-11.0)
[2022-08-08 18:57] LABS: Color, Urine Yellow (Yellow); Glucose, Dipstick Normal (Normal); Ketone-Dipstick Negative (Negative); Leukocyte Esterase-Dipstick Negative /ul (Negative); Nitrite-Dipstick Negative (Negative); Occult Blood-Urine 10 /ul (Negative); Protein-Dipstick 15 mg/dl (Negative); Urine Bilirubin Dipstick Negative (Negative); Urine Clarity Clear (Clear); Urine Urobilinogen 1 mg/dl (Normal); Urine pH 6.5 (5.0 - 8.0)
[2022-08-08 19:02] LABS: AST(SGOT) 49 U/L (15-37); Alanine Aminotransfer ALT/SGPT 61 U/L (16-61); Albumin, Serum 3.7 g/dL (3.2-5.0); Alkaline Phosphatase 85 U/L (45-117); Anion Gap 8 (5-15); BUN 15 mg/dL (7-18); Bilirubin, Direct 0.17 mg/dL (0.00-0.30); Calcium,Total 8.8 mg/dL (8.5-10.1); Chloride 109 mmol/L (98-107); Creatinine, Serum 1.07 mg/dL (0.70-1.30); EST Glomerular Filtration Rate 79 mL/min (>60); Est Glom Filt Rate - Afr Amer 96 mL/min (>60); Estimated Creatinine Clearance 95.69 ml/min; Globulin 3.3 g/dL (2.2-4.2); Glucose 112 mg/dL (74-106); Potassium 3.5 mmol/L (3.5-5.1); Sodium Level 140 mmol/L (136-145)
--- NOTE | 2022-08-08 19:27 | US_ITS ---
STUDY: ABDOMINAL ULTRASOUND - RIGHT UPPER QUADRANT REASON FOR VISIT: Male, 47 years old abdominal pain, TECHNIQUE: Ultrasound evaluation of the right upper quadrant was performed with real-time and static hernandez-scale imaging. TECHNICAL QUALITY: Adequate. COMPARISON: None. FINDINGS: Liver: The liver measures 19.2 cm. There is normal echogenicity of the liver. The bile ducts are within normal limits. There is hepatic color flow. The direction of portal flow is hepatopetal. There is no demonstrated mass lesion. Gallbladder: Normal distended gallbladder. The gallbladder wall measures 1.3 mm. There is a negative sonographic Trent''s sign. There is no pericholecystic fluid. There is a tiny polyp in the fundus but no evidence for shadowing stones Common Bile Duct (C.B.D.): The common bile duct measures 4 mm. Pancreas: Not well visualized due to bowel gas producing artifact. Right Kidney: Normal size of the right kidney. The right kidney measures 11.3 x 5.5 x 5.5 cm. Normal renal cortex. The right cortex measures 1.7 cm. There is no demonstrated renal mass or cyst. There is no right hydronephrosis. US/Gallbladder IMPRESSION: Tiny fundal polyp but no evidence for shadowing stones or acute cholecystitis If concern for gallbladder disease HIDA scan with CCK stimulation would be helpful for further evaluation. Electronically Signed: Eldon Greco MD at 20:14 EDT ,
[2022-08-08 20:29] LABS: Lipase 36 U/L (13-75)
[2022-08-08 21:18] VITALS: BP 157/97; PULSE 89; RESP 16; TEMP 37.2; O2SAT 98
[2022-08-08 21:22] VITALS: BP 157/97; PULSE 89; RESP 16; TEMP 37.2; O2SAT 98
== END 2022-08-08 21:34 | disposition home or self-care (01) ==
PROVIDERS: Emergency Provider Emergency Medicine; PCP Student in an Organized Health Care Education/Training Program; Visit Provider Emergency Medicine
DX: R10.9 Unspecified abdominal pain (principal); E78.5 Hyperlipidemia, unspecified; Z87.891 Personal history of nicotine dependence; K21.9 Gastro-esophageal reflux disease without esophagitis
CPT/HCPCS: 74177; 76705; 80048; 80076; 81001; 83690; 85025; 96361; 96374; 96375; 99283; J7030; Q9967; J2405; J3490

== ENCOUNTER 2024-03-06 15:44 | Emergency (ER) | payer OTHER, SELFPAY ==
[2024-03-06 15:44] VITALS: BP 162/108; PULSE 96; RESP 16; TEMP 37.1; O2SAT 98; BMI 26.5
--- NOTE | 2024-03-06 15:53 | EX.ED.GENINJ ---
HPI History of Present Illness Chief Complaint: Bite [facility] Medical History Back pain Fatigue GI bleed Shoulder pain Home Medications ?Medication ?Instructions ?Recorded ?Last Taken ?Type atorvastatin 10 mg tablet 10 mg PO QHS CHOLESTEROL LOWERING 08/11/14 10/08/17 History amoxicillin 875 mg-potassium 1 tab PO BID #14 tabs 03/06/24 Unknown Rx clavulanate 125 mg tablet Allergy/AdvReac Type Severity Reaction Status Date / Time metaxalone (From Skelaxin) AdvReac Hives Verified 08/08/22 17:20 Family History (Updated 06/10/17 @ 08:07 by Madelaine Tobias) Other Hypertension Surgical History S/P operation on nasal sinus Social History Smoking Status: Former smoker alcohol intake: current alcohol intake frequency: a few times a month Alcohol type: beer and hard liquor EXAM Physical Exam Const Vital Signs: 03/06/24 15:44 Temperature 98.7 F Temperature Source Oral Pulse Rate 96 Respiratory Rate 16 Blood Pressure 162/108 H Blood Pressure Mean 126 Pulse Ox 98 Oxygen Delivery Method Room Air MDM MDM MDM Narrative Medical decision making narrative: HISTORY OF PRESENT ILLNESS: 48-year-old male presents with dog bite to left forearm. The patient states this occurred just prior to arrival. Unknown last tetanus. Denies bleeding. REVIEW OF SYSTEMS: Pertinent positives: Dog bite to left forearm Pertinent negatives: Numbness, weakness PHYSICAL EXAM: Nursing triage notes reviewed, Vital signs reviewed Constitutional: please see mdm Lungs: Clear to auscultation, No wheezing or rales. No increased work of breathing, no conversational dyspnea, no accessory muscle use, no nasal flaring. No respiratory distress noted Heart: Regular rate and rhythm, No murmurs, No rubs and No gallops, 2+ distal pulses (radial, femoral, posterior tibial) in all extremities Extremities: No edema Neuro: Intact 5/5 strength with ok sign (median), intact finger abduction (ulnar) intact wrist extension (radial n). Intact sensation in the radial, ulnar, and median nerve distributions. Skin: Slight abrasions noted to left upper extremity, wound noted to the left lateral forearm, no bleeding noted. No purulence fluctuance induration no foreign bodies noted. MEDICAL DECISION MAKING: Chief Complaint: Dog bite External records reviewed: Reviewed prior allergies Consults: none MDM Narrative: The patient was initially hypertensive with a blood pressure 162/108 otherwise afebrile and nontoxic-appearing. Exam with neurovascular intact left upper extremity. Low suspicion for fracture. Medication for x-ray at this time Updated tetanus, gave Augmentin. Gave strict return precautions. The patient and/or family, caregivers express understanding. The patient and/or family, caregivers agrees with the plan. Shared decision making: I will have a discussion with the patient and or visitors regarding risk/benefits of further testing or admission. They will be made aware of of the risk/benefits inherent in this decision they will be given the opportunity to voice understanding. Total critical care time today provided was at least 0 minutes. This excludes separately billable procedures. Critical care time (if documented) is secondary to the patient having high probability of clinically significant/life threatening deterioration in the patient's condition which required my urgent intervention. Impression: 1. Dog bite Dispo: Discharge home This note was generated with [employer] dictation software. It may contain incorrect words, spelling, and punctuation that were not noted in review of the chart prior to signing. Discharge Plan Triage Chief Complaint: Bite ED Provider: Basilio Salmon Dx/Rx/DC Orders Instructions: ED Dog Bite Prescriptions: New amoxicillin-pot clavulanate 875-125 mg tablet 1 tab PO BID Qty: 14 0RF No Action atorvastatin 10 MG tablet 10 mg PO QHS Patient Comments: CHOLESTEROL Stand Alone Forms: ED Work / School Excuse Primary Care Provider: Aleksey Leung Referrals: Aleksey Leung DO [Primary Care Provider] - Activity Restrictions/Additional Instructions: Thank you for trusting us with your care today! Please take Tylenol (2 pills, 650 mg), ibuprofen (2 pills, 400 mg) every 6 hours as needed for pain and fever control. Please take antibiotics until course complete. Please return to the emergency department if your symptoms change or worsen. Please follow with your primary care physician for further outpatient evaluation and management. Print Language: Citizen Of [place] Disposition Disposition: Home, Self Care Discharge Date/Time: 03/06/24 16:49
--- NOTE | 2024-03-06 16:04 | ED.RN ---
spoke with employer on phone, no drug testing required.
[2024-03-06] MEDS: Diphth,Pertuss(Acell),Tet Vac 0.5 ML Vial IM (16:19)
[2024-03-06] MEDS: Amox/Clavulanate 875 MG Tablet PO (16:19)
== END 2024-03-06 16:49 | disposition home or self-care (01) ==
PROVIDERS: Emergency Provider Emergency Medicine; PCP Student in an Organized Health Care Education/Training Program; Visit Provider Emergency Medicine
DX: S50.872A Other superficial bite of left forearm, initial encounter (principal); W54.0XXA Bitten by dog, initial encounter; Z87.891 Personal history of nicotine dependence; Z23 Encounter for immunization
CPT/HCPCS: 90471; 90715; 99283